=== PATIENT | female | born 1955 | race Caucasian/White ===

== ENCOUNTER 2016-12-30 10:57 | Emergency (ER) | payer BC ==
[~2016-12-30] VITALS: Ht 157.5 cm; Wt 57.7 kg
[2016-12-30 11:00] VITALS: TEMP 97.9
[2016-12-30 12:09] LABS: BASO # 0.1 (0.0-0.2); BASO % 1.4 % (0.0-2.0); EOS # 0.1 (0.0-0.7); EOS % 1.2 % (0-4.0); GRAN # 5.5 (1.4-6.5); GRAN % 59.6 % (42.2-75.2); HEMOGLOBIN 15.6 g/dl (12.5-16.0); LYMPH % 32.7 % (20.0-51.0); MEAN CELL VOLUME 88 fl (80.0-100.0); MEAN CORPUSCULAR HEMOGLOBIN 31 pg (27.0-31.0); MEAN CORPUSCULAR HGB CONC 36 g/dl (33.0-37.0); MEAN PLATELET VOLUME 11.6 fl (7.4-10.4); MONO # 0.4 (0.1-0.6); MONO % 4.8 % (1.7-9.3); PLATELET COUNT 265 K/mm3 (130-400); RED BLOOD COUNT 4.99 M/mm3 (4.10-5.30); WHITE BLOOD COUNT 9.2 K/mm3 (4.8-10.8)
[2016-12-30 12:34] LABS: ADJUSTED CALCIUM 9.6 mg/dL (8.4-10.2); ALANINE AMINOTRANSFERASE 40 U/L (9-52); ALKALINE PHOSPHATASE 155 U/L (50-136); ANION GAP 9 mmol/L (7-16); BILIRUBIN,TOTAL 0.5 mg/dL (0.0-1.0); BLOOD UREA NITROGEN 22 mg/dL (7-17); CALCIUM 9.6 mg/dL (8.4-10.2); CARBON DIOXIDE 25 mmol/L (22-30); CHLORIDE 103 mmol/L (98-107); CREATININE, serum 0.84 mg/dL (0.52-1.25); GLUCOSE 360 mg/dL (74-106); POTASSIUM 3.6 mmol/L (3.4-5.0); SODIUM 137 mmol/L (137-145)
[2016-12-30 13:15] LABS: ACETONE,SERUM NEGATIVE
[2016-12-30] MEDS ORDERED: GLUCOPHAGE850 MG/TAB PO (13:37)
[2016-12-30 13:38] VITALS: BP 121/68; PULSE 79
== END 2016-12-30 13:45 | disposition home or self-care (01) ==
LOC: COL.ER 10:57
PROVIDERS: Nurse Practitioner
DX: R73.9 Hyperglycemia, unspecified (principal); F17.210 Nicotine dependence, cigarettes, uncomplicated; Z98.890 Other specified postprocedural states

== ENCOUNTER → 2017-01-19 | Outpatient (CLI) | payer BC ==
[~2017-01-19] MED LIST: GLUCOPHAGE850 MG/TAB PO
== END ==
LOC: SUN.DIA 11:06
DX: E11.40 Type 2 diabetes mellitus with diabetic neuropathy, unspecified (principal); Z68.23 Body mass index [BMI] 23.0-23.9, adult; Z71.3 Dietary counseling and surveillance; F17.210 Nicotine dependence, cigarettes, uncomplicated
CPT/HCPCS: G0108

== ENCOUNTER 2017-04-19 06:48 | Outpatient (CLI) | payer BC ==
[2017-04-19 07:29] VITALS: BP 160/71; PULSE 74; TEMP 97.9
== END 2017-04-19 08:49 | disposition home or self-care (01) ==
LOC: EUO 06:48
DX: I95.9 Hypotension, unspecified (principal); F17.200 Nicotine dependence, unspecified, uncomplicated
CPT/HCPCS: J0834

== ENCOUNTER → 2018-01-10 | Outpatient (REF) | LOC: ZLAB.WCH 18:14 | DX: Z01.89 Encounter for other specified special examinations (principal) ==

== ENCOUNTER → 2018-02-09 | Day surgery (SDC) | payer BC ==
--- NOTE | 2018-02-09 08:45 | NUR ---
The patient states that she ate a sandwich at 0200 this morning and states that she had a bowel movement at 0400. Dr. Garcia was notified and states that he is going to cancel her procedure today and she can reschedule with his office for a different day. The patient was notified of this.
== END ==
LOC: SDCO 08:22
DX: Z12.11 Encounter for screening for malignant neoplasm of colon (principal); Z53.8 Procedure and treatment not carried out for other reasons

== ENCOUNTER → 2019-03-08 | Outpatient (CLI) | payer BC | LOC: COL.VAS 11:15 | DX: M79.601 Pain in right arm (principal) ==

== ENCOUNTER 2023-04-26 07:24 | Day surgery (SDC) | payer MEDICARE ==
[~2023-04-26] VITALS: Ht 154.9 cm; Wt 70.9 kg
[~2023-04-26 07:24] MED LIST changes: +LR 1,000 ML IV SCH; +NS 1,000 ML IV SCH
[2023-04-26] MEDS ORDERED: Ondansetron 4 MG/2 ML VIAL ONE (08:10)
[2023-04-26] MEDS ORDERED: fentaNYL 50 MCG/ML 2 ML VIAL ONE (08:10)
[2023-04-26] MEDS ORDERED: NS 10 ML IV ONE (08:10)
[2023-04-26] MEDS ORDERED: Rocuronium 50 MG/5 ML Multi-Dose VIAL ONE (08:10)
[2023-04-26] MEDS ORDERED: dexAMETHasone 10 MG/ML VIAL ONE (08:10)
[2023-04-26] MEDS ORDERED: hydrALAZINE 20 MG/ML 1 ML VIAL IV PRN (08:15)
[2023-04-26] MEDS ORDERED: droPERidol 2.5 MG/ML 2 ML VIAL IV PRN (08:15)
[2023-04-26] MEDS ORDERED: fentaNYL 50 MCG/ML 2 ML VIAL IV PRN ×2 (08:15)
[2023-04-26] MEDS ORDERED: HYDROmorphone 2 MG/1 ML VIAL IV PRN (08:15)
[2023-04-26] MEDS ORDERED: Ondansetron 4 MG/2 ML VIAL IV PRN ×2 (08:15→11:30)
--- NOTE | 2023-04-26 08:27 | NUR ---
ACCUCHECK 75. STATES NORMAL 97-110. STATES FEELS SLEEPY AND THIRSTY. ACCUCHECK REPORTED TO CARLA BARRAGAN. ONLY HAS NORMAL SALINE INFUSING. WILL SWITCH TO LACTATED RINGERS. HAD BOTH ORDERS ALREADY IN THE COMPUTER.
[2023-04-26 08:40] LABS: CALCIUM 8.5 mg/dL (8.4-10.2); CREATININE, serum 5.44 mg/dL (0.57-1.11); POTASSIUM 4.1 mmol/L (3.5-4.5)
[2023-04-26] MEDS ORDERED: ASPIRIN E.C. 8181 MG PO (08:44)
[2023-04-26] MEDS ORDERED: NORVASC2.5 MG PO (08:44)
[2023-04-26] MEDS ORDERED: CALCITRIOL PO (08:45)
[2023-04-26] MEDS ORDERED: LIPITOR 80MG80 MG PO (08:45)
[2023-04-26] MEDS ORDERED: PHOS LO PO (08:46)
[2023-04-26] MEDS ORDERED: ZYRTEC 10MG10 MG PO (08:47)
[2023-04-26] MEDS ORDERED: PLAVIX 75MG TAB75 MG PO (08:48)
[2023-04-26] MEDS ORDERED: ZETIA 10MG TAB10 MG PO (08:48)
[2023-04-26] MEDS ORDERED: FARXIGA5 PO (08:49)
[2023-04-26] MEDS ORDERED: COZAAR 50MG50 MG/TAB PO (08:51)
[2023-04-26] MEDS ORDERED: LEVEMIR FLEX100 U/ML SQ (08:51)
[2023-04-26] MEDS ORDERED: VITAMIN B COMPL1 T16 PO (08:52)
[2023-04-26] MEDS ORDERED: MASON NATURAL2000 IU PO (08:53)
[2023-04-26 10:12] VITALS: BP 130/83; PULSE 70; TEMP 98.1
[2023-04-26] MEDS ORDERED: Glycopyrrolate 0.2 MG/ML 1 ML VIAL ONE (10:37)
[2023-04-26] MEDS ORDERED: ePHEDrine 50 MG/ML VIAL ONE (10:38)
[2023-04-26] MEDS ORDERED: Topical Skin Adhesive 1 EACH (1 ML) TOP ONE (11:00)
[2023-04-26] MEDS ORDERED: NORCO 325 MG-51 TAB PO (11:20)
[2023-04-26] MEDS ORDERED: Acetaminophen 325 MG TAB PO PRN (11:30)
[2023-04-26 11:55] VITALS: BP 145/96; PULSE 71; TEMP 97.5
[2023-04-26 12:10] VITALS: BP 152/65; PULSE 73
[2023-04-26 12:25] VITALS: BP 157/61; PULSE 76
[2023-04-26 13:20] VITALS: BP 155/64; PULSE 73; TEMP 97.3
--- NOTE | 2023-04-26 18:01 | NUR ---
[id number]: PT TO [facility]ERY [facility] FROM PACU S/P [employer] CATH PLACEMENT A&O, PLACED ON MONITOR, VSS ON RA 3 ABDOMINAL INCISIONS CLOSED WITH GLUE, PD CATH COVERED WITH 4X4/TEGADERM WITH TRACE SEROSANGUINOUS OUTPUT TO GAUZE ONLY - DRSG CDI GLUCOSE 75 PREOP/70 POSTOP, PROVIDED JUICE AND MUFFIN, RETESTED PRIOR TO DC HOME - 118 RECEIVED REPORT AND ASSUMED CARE OF PT FROM [facility] AT BEDSIDE PROVIDED FOOD/FLUIDS, TOLERATING WELL ASSISTED TO BR AND BACK TO VOID, DENIES COMPLAINT, STEADY GAIT. PT HAS REMAINED A&O, NAD, VSS ON RA, TOLERATING PO, IS WITHOUT SIGNIFICANT COMPLAINT, WITH STEADY GAIT BY END OF STAY IV D/C'D. D/C INSTRUCTIONS, FOLLOW UP REVIEWED AND HANDED TO PT. ALL QUESTIONS AND CONCERNS ADDRESSED TO PT SATISFACTION. TAKEN TO EXIT VIA W/C WITH ALL BELONGINGS AND PAPERWORK IN HAND, ASSISTED INTO PASSENGER SEAT OF POV. FAMILY TO DRIVE HOME.
== END 2023-04-26 13:28 | disposition home or self-care (01) ==
LOC: SDCO 07:24
PROVIDERS: Registered Nurse
DX: I12.0 Hypertensive chronic kidney disease with stage 5 chronic kidney disease or end stage renal disease (principal); N18.5 Chronic kidney disease, stage 5; E11.22 Type 2 diabetes mellitus with diabetic chronic kidney disease; Z79.899 Other long term (current) drug therapy; Z79.4 Long term (current) use of insulin; Z87.891 Personal history of nicotine dependence
CPT/HCPCS: C1750; J0690; J1100; J2405; J2704; J3010; J7120